=== PATIENT | female | born 1995 | race Caucasian/White ===

== ENCOUNTER 2020-09-19 13:48 | Emergency (ER) | payer OTHER ==
[2020-09-19] MEDS ORDERED: KETOROLAC TROMETHAMINE 60 MG/2 ML SDV IM ONE (14:51)
[2020-09-19] MEDS ORDERED: METHYLPREDNISOLONE INJ 125 MG/2 ML SDV IM ONE (14:52)
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
[2020-09-19 15:33] LABS: APPEARANCE,URINE CLEAR; BILIRUBIN,URINE NEGATIVE (NEGATIVE); COLOR,URINE YELLOW; GLUCOSE, URINE NEGATIVE (NEGATIVE); KETONES,URINE NEGATIVE (NEGATIVE); LEUKOCYTE ESTERASE,URINE NEGATIVE (NEGATIVE); NITRITE,URINE NEGATIVE (NEGATIVE); PROTEIN,URINE NEGATIVE (NEGATIVE); URINE SPECIFIC GRAVITY 1.014; UROBILINOGEN,URINE NEGATIVE mg/dL (<2.0)
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
[2020-09-19 17:26] VITALS: BP 126/70
== END 2020-09-19 17:10 | disposition home or self-care (01) ==
LOC: ER 13:48
DX: M54.9 Dorsalgia, unspecified (principal); V43.02XA Car driver injured in collision with other type car in nontraffic accident, initial encounter; Y92.481 Parking lot as the place of occurrence of the external cause; M41.9 Scoliosis, unspecified; M62.830 Muscle spasm of back; M54.5 Low back pain; G89.29 Other chronic pain; J45.909 Unspecified asthma, uncomplicated; F17.200 Nicotine dependence, unspecified, uncomplicated
CPT/HCPCS: 99284; 96372; 81001; 72110; 72070; J1885; J2930